=== PATIENT | male | born 1995 | race Caucasian/White ===

== ENCOUNTER 2017-05-10 04:17 | Emergency (ER) | payer MEDICAID ==
[~2017-05-10 04:17] MED LIST: ALPRAZOLAM PO; AMOXICILLIN875 MG PO; AUGMENTIN875 MG PO; BACTRIM 400-801 TA1 PO; BACTROBAN22 GM TP; CLEOCIN HCL300 M1 PO; FLEXERIL10 MG PO; HYDROCODONE PO; IBUPROFEN PO; MOTRIN600 M1 PO; NAPROXEN PO; NAUSEA MEDICATION PO; NEOMYCIN-POLYMY10 M1 AU; NO MEDICATIONS; VOLTAREN75 MG PO; ZANAFLEX4 M1 PO
== END 2017-05-10 05:45 | disposition home or self-care (01) ==
LOC: CED 04:17
DX: S01.511A Laceration without foreign body of lip, initial encounter (principal); Y04.2XXA Assault by strike against or bumped into by another person, initial encounter; Y92.9 Unspecified place or not applicable
CPT/HCPCS: 12011; 99283